=== PATIENT | female | born 1965 | race American Indian/Alaskan Native ===

== ENCOUNTER 2018-03-04 07:33 | Day surgery (SDC) | payer OTHER ==
[~2018-03-04 07:33] MED LIST: ANCEF/STERILE WATER 2 GM/20 ML IV NR; LACTATED RINGERS 1,000 ML IV SCH; VERSED IV NR
[2018-03-04] MEDS ORDERED: ADRENALIN IR ONE ×2 (08:07→10:17)
--- NOTE | 2018-03-04 08:32 | Anesthesia Consultation ---
Anesthesia Consult and Med Hx Date of service: 03/04/18 - Airway Anesthetic Teeth Evaluation: Good, Caps ROM Head & Neck: Adequate Mental/Hyoid Distance: Adequate Mallampati Class: Class II Intubation Access Assessment: Probably Good - Pulmonary Exam CTA: Yes - Cardiac Exam Cardiac Exam: RRR - Pre-Operative Health Status ASA Pre-Surgery Classification: ASA2 Proposed Anesthetic Plan: General Nerve Block: IS - Pulmonary Hx Smoking: No Hx Sleep Apnea: No (JANAE PRE SCREEN HIGH RISK) - Cardiovascular System Hx Hypertension: Yes (NO MEDS YET) - Central Nervous System Hx Neuromuscular Disorder: Yes (b/l UE tingling/numbness) - Other Systems Hx Cancer: No - Additional Comments Anesthesia Medical History Comments: chronic pain
--- NOTE | 2018-03-04 08:32 | Anesthesia Day of Surgery ---
Anesthesia Day of Surgery - Day of Surgery Patient Examined: Yes Patient H&P Reviewed: Yes Patient is NPO: Yes
[2018-03-04] MEDS ORDERED: MARCAINE 0.5% INFILTRATI NR (09:00)
[2018-03-04] MEDS ORDERED: DILAUDID IV PRN (09:00)
[2018-03-04] MEDS ORDERED: DECADRON IV NR (09:00)
[2018-03-04] MEDS ORDERED: NEURONTIN PO NR (09:00)
[2018-03-04] MEDS ORDERED: XYLOCAINE 1% 20 mL INFILTRATI NR (09:00)
[2018-03-04] MEDS ORDERED: SUBLIMAZE IV NR (09:00)
[2018-03-04] MEDS ORDERED: NACL P/F VIAL (10 ML) INFILTRATI NR (09:00)
[2018-03-04] MEDS ORDERED: MARCAINE 0.5% 30 ML INFILTRATI ONE (09:04)
[2018-03-04] MEDS ORDERED: DIPRIVAN 10 MG/ML IV ONE (09:42)
[2018-03-04] MEDS ORDERED: ePHEDrine SULFATE ONE (10:22)
[2018-03-04] MEDS ORDERED: ROBINUL ONE (10:32)
[2018-03-04] MEDS ORDERED: NEO SYNEPHRINE/NS Syringe(OR USE) IV ONE (10:32)
[2018-03-04] MEDS ORDERED: ZOFRAN ONE (11:16)
[2018-03-04] MEDS ORDERED: DECADRON ONE (11:16)
--- NOTE | 2018-03-04 11:37 | Short Stay Summary ---
Short Stay Documentation Date of service: 03/04/18 - Allergies and Medications Current Medications: Allergies No Known Allergies Allergy (Verified 02/21/18 17:20) Home Medications Medication Instructions Recorded Confirmed Last Taken Type ALPRAZolam [Xanax] 1 mg PO PRN PRN 02/21/18 03/04/18 03/03/18 History Cyclobenzaprine [Flexeril 10 MG 10 mg PO PRN PRN 02/21/18 02/21/18 03/03/18 History TAB] Diclofenac Sodium 75 mg PO BID 02/21/18 03/04/18 02/27/18 History HYDROcodone/APAP 5-325 [[place] 1 each PO Q6HR PRN 02/21/18 02/21/18 03/03/18 History 5/325] Ondansetron [Zofran TAB] 4 mg PO Q8HR PRN 02/21/18 02/21/18 03/03/18 History Zolpidem [Ambien] 10 mg PO QHS 02/21/18 02/21/18 03/03/18 History Active Medications Bupivacaine HCl (Marcaine 0.5%) 20 ml INFILTRATI PREOP NR Stop: 03/04/18 21:00 Cefazolin Sodium (Ancef/Sterile Water 2 Gm/20 Ml) 2 gm IV PREOP NR Stop: 03/04/18 23:59 Celecoxib (Celebrex) 200 mg PO PREOP NR Stop: 03/04/18 18:00 Last Admin: 03/04/18 08:49 Dose: 200 mg Dexamethasone (Decadron) 4 mg IV ONCE NR Stop: 03/04/18 21:00 Fentanyl (Sublimaze) 100 mcg IV ONCE NR Stop: 03/04/18 21:00 Gabapentin (Neurontin) 600 mg PO PREOP NR Stop: 03/04/18 19:00 Last Admin: 03/04/18 08:50 Dose: 600 mg Hydromorphone HCl (Dilaudid) 0.5 mg IV Q10MIN PRN PRN Reason: Pain , Severe (7-10) Stop: 03/04/18 15:00 Lactated Ringer's (Lactated Ringers) 1,000 mls @ 100 mls/hr IV DIRECT BEST Last Admin: 03/04/18 08:40 Dose: 100 mls/hr Lidocaine (Xylocaine 1% 20 Ml) 10 ml INFILTRATI PREOP NR Stop: 03/04/18 21:00 Midazolam HCl (Versed) 2 mg IV PREOP NR Stop: 03/04/18 23:59 Last Admin: 03/04/18 09:06 Dose: 2 mg Sodium Chloride (Nacl P/F Vial (10 Ml)) 1 ml INFILTRATI PREOP NR Stop: 03/04/18 16:00 - Brief post op/procedure progress note Date of procedure: 03/04/18 Pre-op diagnosis: right shoulder pain, ac joint arthritis, partial rotator cuff tear Post-op diagnosis: other (persistent right shoulder pain, ac joint arthritis, partial rotator cuff tear, extensive subacromial bursitis) Procedure: right shoulder arthroscopy subacromial decompression, distal clavicle excision, debriedement extensive subacromial bursitis, partial thickness rotator cuff tear Anesthesia: GETA Findings: as above Surgeon: FRANKI PEREZ Estimated blood loss: minimal Pathology: none Condition: stable - Hospital course Hospital course: no perioperative complications - Disposition Condition at discharge: Good Disposition: DC-01 TO HOME OR SELFCARE Short Stay Discharge Plan Follow up with: NEEMA NORMAN MD [Primary Care Provider] - 7 Days
[2018-03-04] MEDS ORDERED: ADRENALIN IV ONE (12:55)
[2018-03-04] MEDS ORDERED: ZOFRAN IV ONE (13:23)
--- NOTE | 2018-03-04 14:25 | Operative Report ---
INDICATIONS: This is a 52-year-old female who is right-hand dominant, who has had persistent progressively worsening right shoulder pain with marked difficulty of her normal day-to-day activities, status post work related injury. The pain has failed to improve despite extensive nonoperative treatment. MRI scan was performed, which was positive for acromioclavicular joint arthritic changes. There was a partial thickness rotator cuff tear. The patient's MRI findings and diagnosis were discussed at length. After making sure the patient withstood that diagnosis, all of her questions were answered. We then discussed treatment alternatives of surgical and nonsurgical including risks and benefits of both. After a long lengthy discussion, the patient opted to proceed with operative intervention. This will entail a right shoulder arthroscopy, subacromial decompression, distal clavicle excision, arthroscopic possible open rotator cuff repair and surgery as indicated. The risks of which were discussed to include, but not exclusive of infection, blood loss, nerve damage, loss of range of motion, and persistent pain. Again, the patient understood, all of her questions were answered. She wished to proceed with operative intervention. DESCRIPTION OF PROCEDURE: The patient was seen in the preoperative holding area, at which point informed consent was reviewed and appropriate right upper extremity was identified and then marked. Anesthesia was then performed an interscalene block to the right upper extremity. After confirmation of adequate analgesia of the right upper extremity, the patient was then brought back to the operating room and placed supine on a standard operating room table at which point general anesthesia was administered and LMA tube was inserted. After confirmation of adequate general anesthesia and checking appropriate placement of the LMA tube, we then made sure that all bony prominences were well padded that there were no wrinkles in the compression stockings on bilateral lower extremities and SCD pumps were applied to bilateral lower extremities. A pillow was placed beneath the posterior aspect of bilateral thighs, placed in slight flexion of the hips and knees making sure the popliteal fossa was free and clear. The patient was then sat in the beach chair position using the beach chair positioner, which was already in place and the head was secured in a nice suture position. The well left arm was secured in neutral position at the patient's side with the aid of the well arm fregoso. The right upper extremity was then examined under anesthesia. The patient was seen to have full range of motion. There was no evidence of instability. Upon examination under anesthesia, the right upper extremity was then prepped and draped in the usual sterile fashion. After prepping and draping, a time-out was called and appropriate right upper extremity was identified, which again had been marked in the preoperative holding area. We began procedure by first making a standard posterior portal with #15 blade. Once the portal was established, the cannula with the blunt trocar was inserted into the intra-articular aspect of the glenohumeral joint. This went without difficulty or damage to articular cartilage. Once in place, the arthroscopic camera immediately placed in the anterior aspect of the shoulder, we established an anterior portal by first inserting an 18 gauge spinal needle between the subscap and biceps tendon under direct arthroscopic visualization. Once confirmed to be in appropriate position, a 15-blade was then used to establish anteromedial portal. Once the portal was established, blunt trocar was inserted to widen the portal site. Following that arthroscopic probe, we began a diagnostic arthroscopy in the anterior aspect of the shoulder joint where the patient was seen to have a normal subscapularis tendon with normal middle glenohumeral ligament. There was some mild degenerative wear of the anterior and superior labrum, which was gently debrided using 4.0 meniscal shaver. The biceps tendon was seen to be intact. Next, the shoulder was in its normal relation. There was mild grade 1 articular cartilage loss in the central aspect of the glenoid. Inspection of the bare area showed to be no Hill-Sachs lesion. There were no loose bodies in the axillary recess. Inspection of rotator cuff showed to be partial tear encompassing well less than 50% with the tendon complex in both the supraspinatus as well as infraspinatus tendon. This was gently debrided using a 4.0 meniscal shaver down to nice smooth stable healthy remaining tissue. There is negative drive-through sign and no gross evidence of instability when the arm was placed through full range of motion. The arthroscopic pump was turned off to make sure there was good hemostasis. Once this was confirmed, the extraneous fluid was suctioned from the glenohumeral joint using arthroscopic cannula. Following this, the arthroscopic instrumentation was removed and then placed in the subacromial space. Once in the subacromial space, we saw that there was extensive subacromial bursitis. A third incision was made in the lateral aspect of the shoulder in line with the distal clavicle from axillary nerve. Once made, we debrided the extensive subacromial bursitis using a 4.0 meniscal shaver. Hemostasis was achieved with the Arthrocare ablation wand. The arm was then placed through a full range of motion. Overall, we saw there was severe impingement of the rotator cuff upon the undersurface of the acromion and the distal clavicle. The soft tissue was removed from the undersurface of the acromion using Arthrocare ablation wand and then using a 4.0 hooded bur, we carried a subacromial decompression in standard fashion from inferior to superior, posterior and anterior to make sure not to leave any residual anterior hook. We turned our attention to the distal clavicle, which was also seen to be arthritic. Using a 4.0 hooded bur, we carried out a distal clavicle excision to a depth approximately 6-8 mm. Once completed, the arm was again placed through a full range of motion. We saw there was no further impingement of the rotator cuff upon the undersurface of the acromion or the distal clavicle. We then turned our attention to the bursal side rotator cuff, which showed it to be intact and stable when probed. The arthroscopic pump then turned off to make sure there was good hemostasis. Once this was confirmed, the extraneous fluid was suctioned from the subacromial space using arthroscopic cannula. Following this, arthroscopic instrumentation was removed and the 3 portal sites were closed with 3-0 nylon in simple fashion. Following that, Adaptic, 4 x 4s, ABD, paper tape, small abduction sling and the Donjoy Cryo/Cuff blanket was applied. The patient was then awakened from general anesthesia without complications, taken to the recovery room in stable condition. Standard postop orders were written. JOB# [id number] VS/MARCELO
[2018-03-04 14:48] VITALS: BP 115/85
--- NOTE | 2018-03-06 11:26 | Operative Report ---
PREOPERATIVE DIAGNOSES: Persistent right shoulder pain, acromioclavicular joint arthritis, and partial rotator cuff tear. POSTOPERATIVE DIAGNOSES: Persistent right shoulder pain acromioclavicular joint arthritis, partial rotator cuff tear as well as extensive subacromial bursitis. OPERATIVE PROCEDURE: Right shoulder arthroscopy, subacromial decompression, distal clavicle excision, debridement of extensive subacromial bursitis, debridement of partial rotator cuff tear. SURGEON: Damon Moran MD TITLE I MATH TUTOR: None. ANESTHESIA: General plus interscalene block to the operative right upper extremity. DVT PROPHYLAXIS: Open-toe, thigh-high compression stockings and SCD pumps to bilateral lower extremities. ANTIBIOTICS: Ancef 2 grams IV within 1 hour of skin incision. INTRAOPERATIVE COMPLICATIONS: None. INDICATIONS: This is a 52-year-old female who is right-hand dominant, who has had persistent progressively worsening right shoulder pain with marked difficulty of her normal day-to-day activities, status post work related injury. The pain has failed to improve despite extensive nonoperative treatment. MRI scan was performed, which was positive for acromioclavicular joint arthritic changes. There was a partial thickness rotator cuff tear. The patient's MRI findings and diagnosis were discussed at length. After making sure the patient withstood that diagnosis, all of her questions were answered. We then discussed treatment alternatives of surgical and nonsurgical including risks and benefits of both. After a long lengthy discussion, the patient opted to proceed with operative intervention. This will entail a right shoulder arthroscopy, subacromial decompression, distal clavicle excision, arthroscopic possible open rotator cuff repair and surgery as indicated. The risks of which were discussed to include, but not exclusive of infection, blood loss, nerve damage, loss of range of motion, and persistent pain. Again, the patient understood, all of her questions were answered. She wished to proceed with operative intervention. DESCRIPTION OF PROCEDURE: The patient was seen in the preoperative holding area, at which point informed consent was reviewed and appropriate right upper extremity was identified and then marked. Anesthesia was then performed an interscalene block to the right upper extremity. After confirmation of adequate analgesia of the right upper extremity, the patient was then brought back to the operating room and placed supine on a standard operating room table at which point general anesthesia was administered and LMA tube was inserted. After confirmation of adequate general anesthesia and checking appropriate placement of the LMA tube, we then made sure that all bony prominences were well padded that there were no wrinkles in the compression stockings on bilateral lower extremities and SCD pumps were applied to bilateral lower extremities. A pillow was placed beneath the posterior aspect of bilateral thighs, placed in slight flexion of the hips and knees making sure the popliteal fossa was free and clear. The patient was then sat in the beach chair position using the beach chair positioner, which was already in place and the head was secured in a nice suture position. The well left arm was secured in neutral position at the patient's side with the aid of the well arm fregoso. The right upper extremity was then examined under anesthesia. The patient was seen to have full range of motion. There was no evidence of instability. Upon examination under anesthesia, the right upper extremity was then prepped and draped in the usual sterile fashion. After prepping and draping, a time-out was called and appropriate right upper extremity was identified, which again had been marked in the preoperative holding area. We began procedure by first making a standard posterior portal with #15 blade. Once the portal was established, the cannula with the blunt trocar was inserted into the intra-articular aspect of the glenohumeral joint. This went without difficulty or damage to articular cartilage. Once in place, the arthroscopic camera immediately placed in the anterior aspect of the shoulder, we established an anterior portal by first inserting an 18 gauge spinal needle between the subscap and biceps tendon under direct arthroscopic visualization. Once confirmed to be in appropriate position, a 15-blade was then used to establish anteromedial portal. Once the portal was established, blunt trocar was inserted to widen the portal site. Following that arthroscopic probe, we began a diagnostic arthroscopy in the anterior aspect of the shoulder joint where the patient was seen to have a normal subscapularis tendon with normal middle glenohumeral ligament. There was some mild degenerative wear of the anterior and superior labrum, which was gently debrided using 4.0 meniscal shaver. The biceps tendon was seen to be intact. Next, the shoulder was in its normal relation. There was mild grade 1 articular cartilage loss in the central aspect of the glenoid. Inspection of the bare area showed to be no Hill-Sachs lesion. There were no loose bodies in the axillary recess. Inspection of rotator cuff showed to be partial tear encompassing well less than 50% with the tendon complex in both the supraspinatus as well as infraspinatus tendon. This was gently debrided using a 4.0 meniscal shaver down to nice smooth stable healthy remaining tissue. There is negative drive-through sign and no gross evidence of instability when the arm was placed through full range of motion. The arthroscopic pump was turned off to make sure there was good hemostasis. Once this was confirmed, the extraneous fluid was suctioned from the glenohumeral joint using arthroscopic cannula. Following this, the arthroscopic instrumentation was removed and then placed in the subacromial space. Once in the subacromial space, we saw that there was extensive subacromial bursitis. A third incision was made in the lateral aspect of the shoulder in line with the distal clavicle from axillary nerve. Once made, we debrided the extensive subacromial bursitis using a 4.0 meniscal shaver. Hemostasis was achieved with the Arthrocare ablation wand. The arm was then placed through a full range of motion. Overall, we saw there was severe impingement of the rotator cuff upon the undersurface of the acromion and the distal clavicle. The soft tissue was removed from the undersurface of the acromion using Arthrocare ablation wand and then using a 4.0 hooded bur, we carried a subacromial decompression in standard fashion from inferior to superior, posterior and anterior to make sure not to leave any residual anterior hook. We turned our attention to the distal clavicle, which was also seen to be arthritic. Using a 4.0 hooded bur, we carried out a distal clavicle excision to a depth approximately 6-8 mm. Once completed, the arm was again placed through a full range of motion. We saw there was no further impingement of the rotator cuff upon the undersurface of the acromion or the distal clavicle. We then turned our attention to the bursal side rotator cuff, which showed it to be intact and stable when probed. The arthroscopic pump then turned off to make sure there was good hemostasis. Once this was confirmed, the extraneous fluid was suctioned from the subacromial space using arthroscopic cannula. Following this, arthroscopic instrumentation was removed and the 3 portal sites were closed with 3-0 nylon in simple fashion. Following that, Adaptic, 4 x 4s, ABD, paper tape, small abduction sling and the Donjoy Cryo/Cuff blanket was applied. The patient was then awakened from general anesthesia without complications, taken to the recovery room in stable condition. Standard postop orders were written. JOB# [id number] JOB# [id number] VS/NTS
== END 2018-03-04 13:50 | disposition home or self-care (01) ==
LOC: OR 07:33
PROVIDERS: ATTEND Orthopaedic Surgery
DX: S43.431A Superior glenoid labrum lesion of right shoulder, initial encounter (principal); S46.011A Strain of muscle(s) and tendon(s) of the rotator cuff of right shoulder, initial encounter; M75.51 Bursitis of right shoulder; M75.41 Impingement syndrome of right shoulder; M19.011 Primary osteoarthritis, right shoulder; I10 Essential (primary) hypertension; Z88.5 Allergy status to narcotic agent; Z90.710 Acquired absence of both cervix and uterus; X58.XXXA Exposure to other specified factors, initial encounter; Y93.89 Activity, other specified; Y92.89 Other specified places as the place of occurrence of the external cause; Y99.8 Other external cause status
CPT/HCPCS: 29823; 29824; 29826; J0171; J0690; J1100; J1170; J2250; J2370; J2405; J2704; J3010; J7120; L1830